=== PATIENT | male | born 1980 | race Caucasian/White ===

== ENCOUNTER 2020-01-08 22:43 | Emergency (ER) | payer SELFPAY ==
[~2020-01-08] VITALS: Ht 190.5 cm; Wt 93.9 kg
[2020-01-08 22:54] VITALS: BP 129/91
--- NOTE | 2020-01-08 22:54 | NUR ---
ED Nurse Note: Patient brought in by [employer] c/o medical clearance. at time of arrival patient is complaining of substernal chest pain onset for "couple of months" however states it has gotten worse recently. patient states to "get him an xray scan". AAOx4, on room air. Pt is under custody.
--- NOTE | 2020-01-08 23:05 | NUR ---
HAND-OFF: Report given to Tanika YOUNGER .
--- NOTE | 2020-01-08 23:44 | Diagnostic Imaging Report ---
EXAM: XR Chest, 1 View CLINICAL HISTORY: CP TECHNIQUE: Frontal view of the chest. COMPARISON: None. FINDINGS: Lungs: Unremarkable. No consolidation. Pleural space: Unremarkable. No pneumothorax. Heart: Unremarkable. No cardiomegaly. Mediastinum: Unremarkable. Bones/joints: Unremarkable. IMPRESSION: Normal chest x-ray for age.
[2020-01-09 00:01] VITALS: BP 122/85
--- NOTE | 2020-01-09 00:01 | NUR ---
ER DISCHARGE NOTE: Patient is cleared to be discharged per ERMD, pt is aox4, on room air, with stable vital signs. Patient was medically cleared. Patient departed in custody in stable condition. Patient also refused to sign discharge paperwork.
--- NOTE | 2020-01-09 03:56 | Emergency Room Report ---
History of Present Illness General Chief Complaint: Medical Clearance Source: Patient Present Illness HPI 39-year-old male here with chest pain for 1 month. Patient is here for medical clearance. He was arrested earlier tonight and is currently in custody. He says that he has been having dull diffuse chest pain for 1 month. Denies any fevers, chills, palpitations, shortness of breath, back pain, abdominal pain, nausea, vomiting, diarrhea, dysuria. Allergies: Coded Allergies: No Known Allergies (Unverified , 01/08/20) COVID-19 Screening Contact w/high risk pt: No Experienced COVID-19 symptoms?: No COVID-19 Testing performed CONTACT CENTER MANAGER: No Nursing Documentation-[facility] Past Medical History: No Stated History Review of Systems All Other Systems: negative except mentioned in HPI Physical Exam Vital Signs Date Time Temp Pulse Resp B/P (MAP) Pulse Ox O2 Delivery O2 Flow Rate FiO2 01/08/20 22:43 98.4 88 16 129/91 (104) 98 Room Air Sp02 EP Interpretation: reviewed, normal General Appearance: no apparent distress, alert, GCS 15, non-toxic Head: normocephalic, atraumatic Eyes: bilateral eye normal inspection, bilateral eye PERRL ENT: hearing grossly normal, normal pharynx, no angioedema, normal voice Neck: full range of motion, supple/symm/no masses Respiratory: chest non-tender, lungs clear, normal breath sounds, speaking full sentences Cardiovascular #1: regular rate, rhythm, no edema Cardiovascular #2: 2+ carotid (R), 2+ carotid (L), 2+ radial (R), 2+ radial (L) , 2+ dorsalis pedis (R), 2+ dorsalis pedis (L) Gastrointestinal: normal bowel sounds, non tender, soft, non-distended, no guarding, no rebound Rectal: deferred Genitourinary: normal inspection, no CVA tenderness Musculoskeletal: back normal, normal range of motion, calf tenderness, gait/ station normal, non-tender Neurologic: alert, motor strength/tone normal, sensory intact, responsive, speech normal Psychiatric: judgement/insight normal, memory normal, mood/affect normal, no suicidal/homicidal ideation Lymphatic: no adenopathy Medical Decision Making Diagnostic Impression: Primary Impression: Chest pain ER Course Chest x-ray: No infiltrate/effusion. Mediastinum within normal limits EKG: EK bpm NSR, no ischemia, intervals WNL. No ectopy Rhythm strip: patient monitored for arrhythmias - no malignant dysrhythmias, runs of PVCs, nor pauses noted 39-year-old male in custody here for medical clearance for chest pain for 1 month. Patient was hemodynamically stable and neurovascularly intact in the emergency department. He had a completely normal physical examination. Chest x -ray and EKG were completely unremarkable. Patient will follow-up with his primary care provider. Discharged to [facility]. Last Vital Signs Date Time Temp Pulse Resp B/P (MAP) Pulse Ox O2 Delivery O2 Flow Rate FiO2 01/09/20 00:01 98.4 86 17 122/85 99 Room Air Disposition: HOME, SELF-CARE Condition: Stable [facility]: [facility] Departure Forms: Alf Clearance Patient Instructions: Chest Pain Observation Antonio Flowers M.D. Jan 09, 2020 03:56
--- NOTE | 2020-01-11 22:08 | Cardiology Report ---
APPROVED REPORT EKG Measurement Heart [id number] <Conclusion> Normal sinus rhythm Normal ECG
== END 2020-01-09 00:01 | disposition home or self-care (01) ==
LOC: EMR 23:05
DX: R07.9 Chest pain, unspecified (principal)
CPT/HCPCS: 71045; 93005; 99283